=== PATIENT | female | born 1955 | race Two or more races ===

== ENCOUNTER 2022-10-24 17:44 | Emergency (ER) | payer OTHER ==
[~2022-10-24] VITALS: Ht 167.6 cm; Wt 118.0 kg
[2022-10-24 19:26] LABS: Basophils # (auto) 0 10 ^3/uL (0-0.2); Eosinophils # (auto) 0.1 10 ^3/uL (0-0.8); Hematocrit 31.3 % (36.0-46.0); Hemoglobin 9.4 g/dL (12.2-16.2); Lymphocytes # (auto) 0.3 10 ^3/uL (0.4-5.4); Monocytes # (auto) 0.8 10 ^3/uL (0-1.3); Nucleated Red Blood Cells % 0.1 %
[2022-10-24 19:27] LABS: Basophils % (auto) 0.3 % (0.0-2.0); Eosinophils % (auto) 0.8 % (0.0-7.0); Mean Corpuscular Hgb Conc. 30.1 g/dL (32.0-36.0); Mean Corpuscular Volume 73.1 fL (80.0-100.0); Monocytes % (auto) 8.7 % (0.0-12.0); Neutrophils # (auto) 8.3 10 ^3/uL (1.6-8.6); Neutrophils % (auto) 87.2 % (37.0-80.0); Red Blood Cells 4.28 10^6/uL (4.0-5.20); Red Cell Distribution Width 18.7 % (11.8-14.3); White Blood Cell 9.5 10^3/uL (4.4-10.8)
[2022-10-24 19:39] LABS: Albumin 2.6 g/dL (3.4-5.0); BUN/Creatinine Ratio 32.4; Calcium 8.6 mg/dL (8.5-10.1)
[2022-10-24 19:41] LABS: Bilirubin, Total 0.7 mg/dL (0.2-1.0)
[2022-10-24] MEDS ORDERED: HYDROcodone-ACET 10/325MG TAB PO ONE (21:45)
[2022-10-24] MEDS ORDERED: HYDR-4902 PO ×2 (22:22→22:23)
[2022-10-24] MEDS ORDERED: SODIUM CHLORIDE 0.9% 1,000 ML IV ONE (23:30)
[2022-10-25 07:59] VITALS: BP 170/86
== END 2022-10-25 08:42 | disposition home or self-care (01) ==
LOC: ER 17:44 → EDBD 17:44 → ER 10-25 08:42
DX: M25.511 Pain in right shoulder (principal); D64.9 Anemia, unspecified; M79.18 Myalgia, other site; I11.0 Hypertensive heart disease with heart failure; I50.9 Heart failure, unspecified; M54.2 Cervicalgia; Z20.822 Contact with and (suspected) exposure to COVID-19; Z88.2 Allergy status to sulfonamides
CPT/HCPCS: 36415; 70450; 71250; 72125; 73200; 74176; 80053; 82550; 84484; 85025; 87426; 93005; 96360; 96361; 99285; J7030